=== PATIENT | female | born 1940 | race Caucasian/White ===

== ENCOUNTER 2022-09-02 10:06 | Emergency (ER) | payer OTHER ==
[~2022-09-02] VITALS: Ht 152.4 cm; Wt 81.6 kg
== END 2022-09-02 13:42 | disposition home or self-care (01) ==
LOC: ER 10:06
DX: S63.282A Dislocation of proximal interphalangeal joint of right middle finger, initial encounter (principal); W18.30XA Fall on same level, unspecified, initial encounter; Y93.89 Activity, other specified; Y92.89 Other specified places as the place of occurrence of the external cause; Y99.9 Unspecified external cause status; R42 Dizziness and giddiness